=== PATIENT | male | born 1940 | race African-American/Black ===

== ENCOUNTER 2021-12-26 20:27 | Inpatient (IN) | payer OTHER ==
[2021-12-26] MEDS ORDERED: ACETAMINOPHEN 325 MG TABLET (FP) PO ONE (21:38)
[2021-12-26] MEDS ORDERED: ASPIRIN 81 MG CHEWABLE TABLETS PO ONE (22:13)
[2021-12-26] MEDS ORDERED: ASPIRIN 81 MG CHEWABLE TABLETS ONE (22:35)
[2021-12-26] MEDS ORDERED: ACETAMINOPHEN 325 MG TABLET (FP) ONE (22:35)
[2021-12-26 22:40] LABS: BASO % 0.6 % (0-2.0); HEMATOCRIT 40.8 % (35.4-49); HEMOGLOBIN 13.4 GM/dL (11.7-16.9); MCHC 32.9 g/dl (32.0-35.9); MEAN CELL VOLUME 88.1 fl (80-96); MEAN PLT VOLUME 6.8 fl (7.5-11.1); MONO % 10.3 % (3.8-10.2); NEUT % 83.1 % (42.8-82.8); PLATELET COUNT 409 10^3/uL (134-434); RBC 4.63 M/mm3 (4.00-5.60); RDW 16.8 % (11.9-15.9); WHITE BLOOD COUNT 6.8 K/mm3 (4.0-10.0)
[2021-12-26 22:47] LABS: INR 1.24 (0.83-1.09); PROTHROMBIN TIME (PATIENT) 14.3 SEC (9.7-13.0)
[2021-12-26 22:50] LABS: ACTIVATED PTT 26.4 SECONDS (25.2-36.5)
[2021-12-26 23:06] LABS: CALCIUM 9.3 mg/dL (8.5-10.1)
[2021-12-26 23:07] LABS: ALBUMIN 3.7 g/dl (3.4-5.0); BLOOD UREA NITROGEN 16.8 mg/dL (7-18); MAGNESIUM 1.6 mg/dL (1.8-2.4)
[2021-12-26 23:10] LABS: CREATININE 1.4 mg/dL (0.55-1.3)
[2021-12-26 23:12] LABS: BILIRUBIN,TOTAL 0.9 mg/dL (0.2-1)
[2021-12-27 05:15] LABS: EPI CELLS 5 /uL (0-25.1); HYALINE CASTS 0 /uL (0-3.1); PH,URINE 5.5 (5.0-8.0); URINE APPEARANCE CLEAR; URINE BACTERIA 0 /uL (0-1359); URINE BILIRUBIN NEGATIVE (NEGATIVE); URINE COLOR YELLOW; URINE GLUCOSE (UA) NEGATIVE (NEGATIVE); URINE KETONE NEGATIVE (NEGATIVE); URINE LEUK ESTERASE NEGATIVE (NEGATIVE); URINE NITRITE NEGATIVE (NEGATIVE); URINE PROTEIN NEGATIVE (NEGATIVE); URINE RBC 1 /uL (0-23.9); URINE WBC 6 /uL (0-25.8)
[2021-12-27] MEDS ORDERED: HEPARIN NA (PORCINE) 5,000 UNITS/ML 1ML VIAL SQ SCH (06:00)
[2021-12-27] MEDS ORDERED: HEPARIN NA (PORCINE) 5,000 UNITS/ML 1ML VIAL ONE ×3 (06:10→15:56)
[2021-12-27 07:59] LABS: BASO % 0.4 % (0-2.0); EOS % 0.4 % (0-4.5); HEMATOCRIT 39.4 % (35.4-49); LYMPH % 9.3 % (8-40); MCH 29.2 pg (25.7-33.7); MCHC 33.1 g/dl (32.0-35.9); MEAN CELL VOLUME 88.2 fl (80-96); MEAN PLT VOLUME 7.3 fl (7.5-11.1); MONO % 13.7 % (3.8-10.2); NEUT % 76.2 % (42.8-82.8); PLATELET COUNT 394 10^3/uL (134-434); RBC 4.46 M/mm3 (4.00-5.60); RDW 17.1 % (11.9-15.9); WHITE BLOOD COUNT 7.2 K/mm3 (4.0-10.0)
[2021-12-27 08:20] LABS: ALBUMIN 3.5 g/dl (3.4-5.0); BLOOD UREA NITROGEN 15.4 mg/dL (7-18); CALCIUM 9.2 mg/dL (8.5-10.1); CHOLESTEROL 181 mg/dL (50-200); MAGNESIUM 1.7 mg/dL (1.8-2.4); TRIGLYCERIDES 111 mg/dL (0-150)
[2021-12-27 08:21] LABS: LDL CHOLESTEROL (ONLY SJRH) 118 mg/dL (5-100)
[2021-12-27 08:23] LABS: CREATININE 1.2 mg/dL (0.55-1.3); HDL CHOLESTEROL 45 mg/dL (40-60); PHOSPHOROUS 3.9 mg/dL (2.5-4.9)
[2021-12-27 08:25] LABS: BILIRUBIN,TOTAL 0.9 mg/dL (0.2-1); TOT PROT 7.4 g/dl (6.4-8.2)
[2021-12-27] MEDS: INSULIN SLIDING SCALE (NOVOLOG) 1 VIAL SQ SCH ×3 (09:06→21:48)
[2021-12-27] MEDS ORDERED: ENOXAPARIN NA (PORCINE) 40 MG/0.4 ML DISP.SYRIN SQ SCH (10:00)
[2021-12-27] MEDS: CARVEDILOL 25 MG TABLET (FP) PO SCH ×2 (10:45→21:48)
[2021-12-27] MEDS ORDERED: CARVEDILOL 25 MG TABLET (FP) ONE (10:48)
[2021-12-27] MEDS ORDERED: HEPARIN NA (PORCINE) 5,000 UNITS/ML 1ML VIAL IVPUSH ONE (10:57)
[2021-12-27] MEDS ORDERED: HEPARIN NA (PORCINE) 5,000 UNITS/ML 1ML VIAL IVPUSH PRN ×4 (10:57→16:33)
[2021-12-27] MEDS ORDERED: HEPARIN INFUSION - 25,000 UNITS/500 ML INFUS.BAG IVPB SCH (11:00)
[2021-12-27] MEDS ORDERED: HEPARIN INFUSION - 25,000 UNITS/500 ML INFUS.BAG IVPB ONE (12:10)
[2021-12-27] MEDS ORDERED: ALBUTEROL SO4 HFA INHALER IH PRN (14:35)
[2021-12-27] MEDS ORDERED: DEXMEDETOMIDINE HCL 200 MCG/2 ML IVPB ONE (15:30)
[2021-12-27] MEDS ORDERED: SUCCINYLCHOLINE CHLORIDE 200 MG/10 ML SYRINGE ONE ×2 (15:49→17:23)
[2021-12-27] MEDS ORDERED: BUPIVACAINE HCL/PF 0.5% (5MG/ML) 10 ML VIAL ONE (15:56)
[2021-12-27] MEDS ORDERED: LIDOCAINE HCL 1%, 10 MG/ML (20ML VIAL) ONE (15:56)
[2021-12-27] MEDS: FLUTICASONE/UMECLIDIN/VILANTER(200-62.5-25 TRELEGY ELLIPTA) INAHLER IH SCH (16:25)
[2021-12-27] MEDS ORDERED: ceFAZolin SODIUM 1 GM VIAL IVPB ONE (16:42)
[2021-12-27] MEDS ORDERED: BUPIVACAINE HCL/PF 0.5% (5MG/ML) 10 ML VIAL IJ ONE (16:47)
[2021-12-27] MEDS ORDERED: LIDOCAINE HCL 1%, 10 MG/ML (50 mL VIAL) INF ONE (16:47)
[2021-12-27] MEDS ORDERED: PROPOFOL 20 ML ONE (17:23)
[2021-12-27] MEDS: HEPARIN INFUSION - 25,000 UNITS/500 ML INFUS.BAG IVPB SCH (19:00)
[2021-12-27] MEDS: ATORVASTATIN CA 80 MG TABLET (FP) PO SCH (21:48)
[2021-12-27] MEDS: MUPIROCIN 2% TOPICAL OINTMENT FOR DECOLONIZATION NS SCH (22:22)
[2021-12-27] MEDS: CHLORHEXIDINE GLUCONATE 4% CLEANSER FOR DECOLONIZATION TP SCH (22:22)
[2021-12-28] MEDS: INSULIN SLIDING SCALE (NOVOLOG) 1 VIAL SQ SCH ×6 (06:21→21:10)
[2021-12-28 08:14] LABS: HEMATOCRIT 39.8 % (35.4-49); MCH 29.1 pg (25.7-33.7); MCHC 32.7 g/dl (32.0-35.9); MEAN PLT VOLUME 7.5 fl (7.5-11.1); PLATELET COUNT 269 10^3/uL (134-434); RBC 4.47 M/mm3 (4.00-5.60); RDW 16.9 % (11.9-15.9); WHITE BLOOD COUNT 7.3 K/mm3 (4.0-10.0)
[2021-12-28 08:19] LABS: INR 1.27 (0.83-1.09); PROTHROMBIN TIME (PATIENT) 14.6 SEC (9.7-13.0)
[2021-12-28 08:21] LABS: ACTIVATED PTT 49.8 SECONDS (25.2-36.5)
[2021-12-28 08:25] LABS: ALBUMIN 2.9 g/dl (3.4-5.0); BLOOD UREA NITROGEN 20.1 mg/dL (7-18)
[2021-12-28 08:27] LABS: CALCIUM 8.7 mg/dL (8.5-10.1)
[2021-12-28 08:28] LABS: CREATININE 1.5 mg/dL (0.55-1.3)
[2021-12-28 08:29] LABS: MAGNESIUM 1.7 mg/dL (1.8-2.4)
[2021-12-28 08:30] LABS: BILIRUBIN,TOTAL 1.3 mg/dL (0.2-1); TOT PROT 6.6 g/dl (6.4-8.2)
[2021-12-28] MEDS: MUPIROCIN 2% TOPICAL OINTMENT FOR DECOLONIZATION NS SCH ×2 (09:19→21:08)
[2021-12-28] MEDS: CARVEDILOL 25 MG TABLET (FP) PO SCH ×2 (09:19→21:09)
[2021-12-28] MEDS: TAMSULOSIN HCL 0.4 MG CAP PO SCH (09:19)
[2021-12-28] MEDS: FLUTICASONE/UMECLIDIN/VILANTER(200-62.5-25 TRELEGY ELLIPTA) INAHLER IH SCH (11:17)
[2021-12-28] MEDS: ACETAMINOPHEN 325 MG TABLET (FP) PO PRN (11:18)
[2021-12-28] MEDS: HEPARIN INFUSION - 25,000 UNITS/500 ML INFUS.BAG IVPB SCH (18:20)
[2021-12-28] MEDS: CHLORHEXIDINE GLUCONATE 4% CLEANSER FOR DECOLONIZATION TP SCH (21:09)
[2021-12-28] MEDS: ATORVASTATIN CA 80 MG TABLET (FP) PO SCH (21:09)
[2021-12-29] MEDS: INSULIN SLIDING SCALE (NOVOLOG) 1 VIAL SQ SCH ×4 (06:23→21:50)
[2021-12-29 06:59] LABS: HEMATOCRIT 37.8 % (35.4-49); HEMOGLOBIN 12.3 GM/dL (11.7-16.9); MCH 28.8 pg (25.7-33.7); MCHC 32.5 g/dl (32.0-35.9); MEAN CELL VOLUME 88.6 fl (80-96); PLATELET COUNT 244 10^3/uL (134-434); RBC 4.27 M/mm3 (4.00-5.60); RDW 16.9 % (11.9-15.9); WHITE BLOOD COUNT 9.9 K/mm3 (4.0-10.0)
[2021-12-29] MEDS: TAMSULOSIN HCL 0.4 MG CAP PO SCH (09:33)
[2021-12-29] MEDS: CARVEDILOL 25 MG TABLET (FP) PO SCH ×2 (09:34→21:50)
[2021-12-29] MEDS: MUPIROCIN 2% TOPICAL OINTMENT FOR DECOLONIZATION NS SCH ×2 (09:35→21:50)
[2021-12-29] MEDS: FLUTICASONE/UMECLIDIN/VILANTER(200-62.5-25 TRELEGY ELLIPTA) INAHLER IH SCH (09:35)
[2021-12-29] MEDS: APIXABAN 5 MG TABLET PO SCH ×2 (14:05→21:50)
[2021-12-29 14:57] VITALS: BMI 34.1
[2021-12-29] MEDS: ACETAMINOPHEN 325 MG TABLET (FP) PO PRN (21:49)
[2021-12-29] MEDS: CHLORHEXIDINE GLUCONATE 4% CLEANSER FOR DECOLONIZATION TP SCH (21:50)
[2021-12-29] MEDS: ATORVASTATIN CA 80 MG TABLET (FP) PO SCH (21:50)
[2021-12-30] MEDS: INSULIN SLIDING SCALE (NOVOLOG) 1 VIAL SQ SCH ×2 (06:18→10:58)
[2021-12-30 06:21] VITALS: TEMP 97.7
[2021-12-30 08:17] LABS: CALCIUM 8.3 mg/dL (8.5-10.1)
[2021-12-30 08:18] LABS: ALBUMIN 2.5 g/dl (3.4-5.0); BLOOD UREA NITROGEN 20.6 mg/dL (7-18); MAGNESIUM 1.9 mg/dL (1.8-2.4)
[2021-12-30 08:21] LABS: BILIRUBIN,TOTAL 0.8 mg/dL (0.2-1); CREATININE 1.1 mg/dL (0.55-1.3); PHOSPHOROUS 3.1 mg/dL (2.5-4.9); TOT PROT 6.1 g/dl (6.4-8.2)
[2021-12-30] MEDS: APIXABAN 5 MG TABLET PO SCH (09:10)
[2021-12-30] MEDS: TAMSULOSIN HCL 0.4 MG CAP PO SCH (09:10)
[2021-12-30] MEDS: CARVEDILOL 25 MG TABLET (FP) PO SCH (09:10)
[2021-12-30] MEDS: FLUTICASONE/UMECLIDIN/VILANTER(200-62.5-25 TRELEGY ELLIPTA) INAHLER IH SCH (09:11)
[2021-12-30] MEDS: MUPIROCIN 2% TOPICAL OINTMENT FOR DECOLONIZATION NS SCH (09:11)
[2021-12-30] MEDS: ACETAMINOPHEN 325 MG TABLET (FP) PO PRN (09:17)
[2021-12-30 10:50] VITALS: BP 132/75; PULSE 91; RESP 21
[2021-12-30 11:35] LABS: BASO % 0.5 % (0-2.0); EOS % 0.2 % (0-4.5); HEMATOCRIT 36.4 % (35.4-49); HEMOGLOBIN 11.9 GM/dL (11.7-16.9); MCHC 32.8 g/dl (32.0-35.9); MEAN CELL VOLUME 88.5 fl (80-96); MEAN PLT VOLUME 7.5 fl (7.5-11.1); MONO % 10.1 % (3.8-10.2); NEUT % 81.2 % (42.8-82.8); PLATELET COUNT 286 10^3/uL (134-434); RBC 4.11 M/mm3 (4.00-5.60); RDW 16.4 % (11.9-15.9); WHITE BLOOD COUNT 6.9 K/mm3 (4.0-10.0)
== END 2021-12-30 18:25 | disposition left against medical advice (07) | DRG 270 ==
LOC: JER 20:27 → JERBED 12-27 02:59 → JICU 12-27 19:28
PROVIDERS: ADMIT Hospitalist; ATTEND Internal Medicine
PROC: 047K3ZZ Dilation of Right Femoral Artery, Percutaneous Approach (ICD-10-PCS; 2021-12-27)
PROC: 04UK3JZ Supplement Right Femoral Artery with Synthetic Substitute, Percutaneous Approach (ICD-10-PCS; 2021-12-27)
PROC: 3E05317 Introduction of Other Thrombolytic into Peripheral Artery, Percutaneous Approach (ICD-10-PCS; 2021-12-27)
PROC: B41DZZZ Fluoroscopy of Aorta and Bilateral Lower Extremity Arteries (ICD-10-PCS; 2021-12-27)
PROC: 04CK3ZZ Extirpation of Matter from Right Femoral Artery, Percutaneous Approach (ICD-10-PCS; principal; 2021-12-27 15:33)
DX: I74.3 Embolism and thrombosis of arteries of the lower extremities (principal); I77.77 Dissection of artery of lower extremity; N17.9 Acute kidney failure, unspecified; G89.18 Other acute postprocedural pain; M79.661 Pain in right lower leg; E11.51 Type 2 diabetes mellitus with diabetic peripheral angiopathy without gangrene; J44.9 Chronic obstructive pulmonary disease, unspecified; I10 Essential (primary) hypertension; I70.202 Unspecified atherosclerosis of native arteries of extremities, left leg; F03.90 Unspecified dementia, unspecified severity, without behavioral disturbance, psychotic disturbance, mood disturbance, and anxiety; Z95.820 Peripheral vascular angioplasty status with implants and grafts; E78.5 Hyperlipidemia, unspecified; I48.91 Unspecified atrial fibrillation; R10.30 Lower abdominal pain, unspecified; R42 Dizziness and giddiness; M25.551 Pain in right hip; I49.9 Cardiac arrhythmia, unspecified; R53.1 Weakness; R00.0 Tachycardia, unspecified; N28.9 Disorder of kidney and ureter, unspecified; N20.0 Calculus of kidney; N40.0 Benign prostatic hyperplasia without lower urinary tract symptoms
CPT/HCPCS: 0241U-QW; 36415; 71045-TC-FY; 75635-TC; 76000-TC-FY; 80053; 80061; 81003; 82550; 82553; 82570; 82962; 83036; 83735; 83935; 84100; 84300; 84540; 85025; 85027; 85610; 85730; 86850; 86900; 86901; 88304-TC; 93005; 93010; 93971-TC; 94760; 99285-25; J1644; Q9967

== ENCOUNTER 2022-04-07 12:01 | Inpatient (IN) | payer OTHER ==
[2022-04-07 13:13] LABS: INR 1.2 (0.83-1.09); PROTHROMBIN TIME (PATIENT) 13.8 SEC (9.7-13.0)
[2022-04-07 13:16] LABS: ACTIVATED PTT 27.5 SECONDS (25.2-36.5)
[2022-04-07 13:18] LABS: BASO % 0.4 % (0-2.0); EOS % 0.9 % (0-4.5); HEMATOCRIT 34.1 % (35.4-49); HEMOGLOBIN 11.3 GM/dL (11.7-16.9); LYMPH % 6.1 % (8-40); MCH 28.8 pg (25.7-33.7); MCHC 33.1 g/dl (32.0-35.9); MEAN CELL VOLUME 87.2 fl (80-96); MEAN PLT VOLUME 6.9 fl (7.5-11.1); MONO % 7.6 % (3.8-10.2); PLATELET COUNT 477 10^3/uL (134-434); RBC 3.91 M/mm3 (4.00-5.60); RDW 15.8 % (11.9-15.9); WHITE BLOOD COUNT 7.8 K/mm3 (4.0-10.0)
[2022-04-07 13:35] LABS: CALCIUM 8.5 mg/dL (8.5-10.1)
[2022-04-07 13:36] LABS: ALBUMIN 3.1 g/dl (3.4-5.0); BLOOD UREA NITROGEN 28.6 mg/dL (7-18)
[2022-04-07 13:38] LABS: CREATININE 1.9 mg/dL (0.55-1.3)
[2022-04-07 13:40] LABS: BILIRUBIN,TOTAL 0.5 mg/dL (0.2-1); TOT PROT 7.2 g/dl (6.4-8.2)
[2022-04-07 14:50] LABS: EPI CELLS 8 /uL (0-25.1); HYALINE CASTS 2 /uL (0-3.1); URINE APPEARANCE CLEAR; URINE BACTERIA 0 /uL (0-1359); URINE BILIRUBIN NEGATIVE (NEGATIVE); URINE COLOR YELLOW; URINE GLUCOSE (UA) NEGATIVE (NEGATIVE); URINE KETONE NEGATIVE (NEGATIVE); URINE LEUK ESTERASE NEGATIVE (NEGATIVE); URINE NITRITE NEGATIVE (NEGATIVE); URINE PROTEIN 1+ (NEGATIVE); URINE RBC 7 /uL (0-23.9); URINE WBC 12 /uL (0-25.8)
[2022-04-07] MEDS: SODIUM CHLORIDE 1,000 ML IV SCH (18:44)
[2022-04-07] MEDS ORDERED: ASPIRIN 300 MG SUPP.RECT PR SCH (20:30)
[2022-04-07] MEDS: CARVEDILOL 25 MG TABLET (FP) PO SCH (21:31)
[2022-04-07] MEDS: ENOXAPARIN NA (PORCINE) 100 MG/1 ML DISP.SYRIN SQ SCH (21:31)
[2022-04-07] MEDS: ATORVASTATIN CA 80 MG TABLET (FP) PO SCH (21:31)
[2022-04-08 03:14] VITALS: BMI 39.5
[2022-04-08 08:27] LABS: BASO % 0.5 % (0-2.0); EOS % 1.8 % (0-4.5); HEMATOCRIT 35.1 % (35.4-49); HEMOGLOBIN 11.3 GM/dL (11.7-16.9); LYMPH % 12.9 % (8-40); MCH 28.2 pg (25.7-33.7); MCHC 32.3 g/dl (32.0-35.9); MEAN CELL VOLUME 87.3 fl (80-96); MEAN PLT VOLUME 7.3 fl (7.5-11.1); MONO % 9.7 % (3.8-10.2); NEUT % 75.1 % (42.8-82.8); PLATELET COUNT 458 10^3/uL (134-434); RBC 4.02 M/mm3 (4.00-5.60); RDW 15.7 % (11.9-15.9); WHITE BLOOD COUNT 4.7 K/mm3 (4.0-10.0)
[2022-04-08 08:28] LABS: INR 1.25 (0.83-1.09); PROTHROMBIN TIME (PATIENT) 14.4 SEC (9.7-13.0)
[2022-04-08 08:29] LABS: ACTIVATED PTT 30.6 SECONDS (25.2-36.5)
[2022-04-08 09:04] LABS: CALCIUM 8.5 mg/dL (8.5-10.1)
[2022-04-08 09:05] LABS: ALBUMIN 2.9 g/dl (3.4-5.0); BLOOD UREA NITROGEN 18.9 mg/dL (7-18)
[2022-04-08 09:08] LABS: CREATININE 1.4 mg/dL (0.55-1.3); PHOSPHOROUS 3.8 mg/dL (2.5-4.9)
[2022-04-08 09:09] LABS: BILIRUBIN,TOTAL 0.9 mg/dL (0.2-1)
[2022-04-08] MEDS ORDERED: ASPIRIN SUPPOSITORY 600 MG SUPP.RECT PR SCH (10:00)
[2022-04-08] MEDS: ENOXAPARIN NA (PORCINE) 100 MG/1 ML DISP.SYRIN SQ SCH ×2 (10:04→21:27)
[2022-04-08] MEDS: CARVEDILOL 25 MG TABLET (FP) PO SCH ×2 (10:06→21:27)
[2022-04-08] MEDS: SODIUM CHLORIDE 1,000 ML IV SCH (18:20)
[2022-04-08] MEDS: ATORVASTATIN CA 80 MG TABLET (FP) PO SCH (21:27)
[2022-04-09 08:02] LABS: BASO % 0.8 % (0-2.0); EOS % 1.6 % (0-4.5); HEMATOCRIT 36.2 % (35.4-49); HEMOGLOBIN 11.4 GM/dL (11.7-16.9); LYMPH % 12.3 % (8-40); MCH 27.6 pg (25.7-33.7); MCHC 31.6 g/dl (32.0-35.9); MEAN CELL VOLUME 87.5 fl (80-96); MEAN PLT VOLUME 7.2 fl (7.5-11.1); MONO % 10.9 % (3.8-10.2); NEUT % 74.4 % (42.8-82.8); PLATELET COUNT 425 10^3/uL (134-434); RBC 4.14 M/mm3 (4.00-5.60); RDW 15.6 % (11.9-15.9); WHITE BLOOD COUNT 4.3 K/mm3 (4.0-10.0)
[2022-04-09 08:28] LABS: ALBUMIN 2.7 g/dl (3.4-5.0); CALCIUM 8.5 mg/dL (8.5-10.1)
[2022-04-09 08:29] LABS: BLOOD UREA NITROGEN 16.1 mg/dL (7-18); MAGNESIUM 2.1 mg/dL (1.8-2.4)
[2022-04-09 08:31] LABS: PHOSPHOROUS 3.5 mg/dL (2.5-4.9)
[2022-04-09 08:32] LABS: CREATININE 1.3 mg/dL (0.55-1.3)
[2022-04-09 08:33] LABS: BILIRUBIN,TOTAL 0.9 mg/dL (0.2-1); TOT PROT 6.6 g/dl (6.4-8.2)
[2022-04-09] MEDS: ENOXAPARIN NA (PORCINE) 100 MG/1 ML DISP.SYRIN SQ SCH (09:58)
[2022-04-09] MEDS: CARVEDILOL 25 MG TABLET (FP) PO SCH ×2 (09:58→22:05)
[2022-04-09] MEDS: ASPIRIN COATED 81 MG TABLET.EC PO SCH (11:08)
[2022-04-09 15:28] VITALS: RESP 20
[2022-04-09] MEDS: ATORVASTATIN CA 80 MG TABLET (FP) PO SCH (22:05)
[2022-04-09] MEDS: APIXABAN 5 MG TABLET PO SCH (22:06)
[2022-04-10 09:04] LABS: BASO % 1.2 % (0-2.0); EOS % 2.2 % (0-4.5); HEMATOCRIT 34.2 % (35.4-49); HEMOGLOBIN 11.3 GM/dL (11.7-16.9); LYMPH % 16.2 % (8-40); MCH 28.7 pg (25.7-33.7); MCHC 32.9 g/dl (32.0-35.9); MEAN CELL VOLUME 87.1 fl (80-96); MEAN PLT VOLUME 7.2 fl (7.5-11.1); MONO % 13.1 % (3.8-10.2); NEUT % 67.3 % (42.8-82.8); PLATELET COUNT 420 10^3/uL (134-434); RBC 3.93 M/mm3 (4.00-5.60); RDW 16.1 % (11.9-15.9); WHITE BLOOD COUNT 4.3 K/mm3 (4.0-10.0)
[2022-04-10 09:57] LABS: CALCIUM 8.4 mg/dL (8.5-10.1)
[2022-04-10] MEDS ORDERED: amLODIPine BESYLATE 2.5 MG TABLET (FP) PO SCH (10:00)
[2022-04-10 10:01] LABS: CREATININE 1.4 mg/dL (0.55-1.3)
[2022-04-10] MEDS: CARVEDILOL 25 MG TABLET (FP) PO SCH (10:27)
[2022-04-10] MEDS: ASPIRIN COATED 81 MG TABLET.EC PO SCH (10:27)
[2022-04-10] MEDS: APIXABAN 5 MG TABLET PO SCH (10:27)
[2022-04-10 15:42] VITALS: BP 138/56; PULSE 81; TEMP 98.4
== END 2022-04-10 17:33 | disposition home health service (06) | DRG 65 ==
LOC: JER 12:01 → JERBED 13:38 → J4W 20:26
PROVIDERS: ADMIT Internal Medicine
DX: I63.9 Cerebral infarction, unspecified (principal); G81.91 Hemiplegia, unspecified affecting right dominant side; N17.9 Acute kidney failure, unspecified; R47.01 Aphasia; E11.51 Type 2 diabetes mellitus with diabetic peripheral angiopathy without gangrene; E78.5 Hyperlipidemia, unspecified; J44.9 Chronic obstructive pulmonary disease, unspecified; I48.91 Unspecified atrial fibrillation; E11.22 Type 2 diabetes mellitus with diabetic chronic kidney disease; I12.9 Hypertensive chronic kidney disease with stage 1 through stage 4 chronic kidney disease, or unspecified chronic kidney disease; N18.9 Chronic kidney disease, unspecified
CPT/HCPCS: 36415; 70450-TC; 70496-TC; 70498-TC; 70551-TC; 71045-TC-FY; 74230-TC-FY; 80048; 80053; 80061; 81003; 82962; 83036; 83735; 84100; 84443; 84484; 85025; 85610; 85730; 86850; 86900; 86901; 92611-GN; 93005; 93010; 93306-TC; 93880-TC; 97116-GP; 97162-GP; 99285-25; C9803-CS; Q9967; U0003; U0005

== ENCOUNTER 2025-01-10 12:47 | Inpatient (IN) | payer OTHER ==
[2025-01-10] MEDS ORDERED: PIPERACILLIN/TAZOB 4.5 GM 4.5 GM/100 ML BAG IVPB ONE (13:25)
[2025-01-10 13:30] LABS: MCHC 32.8 g/dl (32.3-36.5); MEAN CELL VOLUME 95.1 fl (79.0-92.2); MEAN PLT VOLUME 12.7 fl (9.4-12.4); RDW 17.0 % (12.6-16.6)
[2025-01-10] MEDS: PIPERACILLIN/TAZOBACTAM 4.5 GM VIAL IVPB ONE (13:32)
[2025-01-10] MEDS: LACTATED RINGERS SOLUTION 1000 ML INFUS.BAG IV ONE ×2 (13:32→15:12)
[2025-01-10 13:39] LABS: INR 1.76 (0.83-1.09); PROTHROMBIN TIME (PATIENT) 19.4 SEC (9.7-13.0)
[2025-01-10 13:40] LABS: BG HCT 55.0 % (35.4-49); VENOUS BASE EXCESS -9.1 mmol/L (-2-2); VENOUS O2 SATURATION 37.1 % (70-80); VENOUS PCO2 37.5 mmHg (38-52); VENOUS PH 7.271 (7.310-7.410)
[2025-01-10] MEDS ORDERED: VANCOMYCIN 1 GM PREMIX (F) 1 GM/200 ML BAG ONE (13:41)
[2025-01-10 13:42] LABS: ACTIVATED PTT 30.7 SECONDS (25.2-36.5)
[2025-01-10] MEDS: VANCOMYCIN 1,000 MG in DEXTROSE 5%-WATER - 500 ML IVPB ONE (13:45)
[2025-01-10] MEDS: CLINDAMYCIN 600MG PREMIX IVPB 600 MG/50 ML BAG IVPB ONE (13:49)
[2025-01-10 13:50] LABS: GLUCOSE,RANDOM 135.0 mg/dL (74-106)
[2025-01-10 13:51] LABS: TOT PROT 6.3 g/dl (6.4-8.2)
[2025-01-10 13:52] LABS: CO2 15.0 mmol/L (21-32)
[2025-01-10 13:53] LABS: ALK PHOS 96.0 U/L (40-150)
[2025-01-10 13:56] LABS: CREATININE 2.52 mg/dL (0.55-1.3); LACTIC ACID 7.2 mmol/L (0.4-2.0); SGOT/AST 77.0 U/L (5-34); SGPT/ALT 18.0 U/L (0-55)
[2025-01-10 14:17] LABS: HCV DIAGNOSTIC IN-HOUSE W/RFLX NON-REACTIVE (NONREACTIVE); HIV INTERPRETATION NEGATIVE (NEGATIVE)
[2025-01-10] MEDS: CLINDAMYCIN 900 MG PREMIX IVPB 900 MG/50 ML BAG IVPB ONE (15:18)
[2025-01-10 16:55] LABS: EPI CELLS 10 /uL (0-25.1); HYALINE CASTS 2 /uL (0-3.1); URINE APPEARANCE TURBID; URINE BACTERIA >9,000 /uL (0-1359); URINE BILIRUBIN 2+ (NEGATIVE); URINE COLOR DK YELLOW; URINE GLUCOSE (UA) NEGATIVE (NEGATIVE); URINE KETONE TRACE (NEGATIVE); URINE LEUK ESTERASE 3+ (NEGATIVE); URINE NITRITE NEGATIVE (NEGATIVE); URINE PROTEIN 1+ (NEGATIVE); URINE RBC 118 /uL (0-23.9); URINE UROBILINOGEN 1.0 mg/dL (0.2-1.0); URINE WBC 1352 /uL (0-25.8)
[2025-01-10] MEDS ORDERED: METOPROLOL TARTRATE 5 MG/5 ML VIAL ONE (17:35)
[2025-01-10] MEDS: METOPROLOL TARTRATE 5 MG/5 ML VIAL IVPUSH ONE (17:42)
[2025-01-10] MEDS: SODIUM CHLORIDE 0.9% 500 ML INFUS.BAG IV ONE (17:43)
[2025-01-10 18:00] LABS: LACTIC ACID 8.9 mmol/L (0.4-2.0)
[2025-01-10 19:24] LABS: ARTERIAL BLD GAS O2 SATURATION 90.8 % (95-98); ARTERIAL BLOOD GAS BASE EXCESS -7.9 mmol/L (-2-2); ARTERIAL BLOOD GAS PCO2 30.40 mmHg (35-45); ARTERIAL BLOOD GAS PO2 61.5 mmHg (80-100); BG HCT 45.0 % (35.4-49); O2 CONTENT 1.88 % vol
[2025-01-10 19:29] LABS: ALLENS TEST POSITIVE
[2025-01-10] MEDS: ALBUTEROL SO4 2.5/IPRATROPIUM 0.5 INH SOL 3 ML VIAL.NEB. NEB SCH (20:12)
[2025-01-10] MEDS ORDERED: PIPERACILLIN/TAZOB 2.25 GM 2.25 GM in DEXTROSE 5%-WATER - 50 ML IVPB SCH (21:00)
[2025-01-10 21:46] LABS: GLUCOSE,RANDOM 141.0 mg/dL (74-106); TOT PROT 5.6 g/dl (6.4-8.2)
[2025-01-10] MEDS: CHLORHEXIDINE GLUCONATE 4% CLEANSER FOR DECOLONIZATION TP SCH (21:48)
[2025-01-10] MEDS: SODIUM ZIRCONIUM CYCLOSILICATE (LOKELMA) 5 GM PACKET PO SCH (21:48)
[2025-01-10 21:49] LABS: ALK PHOS 87.0 U/L (40-150)
[2025-01-10] MEDS: MUPIROCIN 2% TOPICAL OINTMENT FOR DECOLONIZATION NS SCH (21:49)
[2025-01-10 21:51] LABS: SGOT/AST 132.0 U/L (5-34); SGPT/ALT 25.0 U/L (0-55)
[2025-01-10 21:52] LABS: CREATININE 2.42 mg/dL (0.55-1.3)
[2025-01-10] MEDS: PIPERACILLIN/TAZOB 2.25 GM 2.25 GM in DEXTROSE 5%-WATER - 50 ML IVPB SCH (21:58)
[2025-01-10 22:02] LABS: CO2 16.0 mmol/L (21-32)
[2025-01-10 22:17] LABS: LACTIC ACID 8.0 mmol/L (0.4-2.0)
[2025-01-10] MEDS: LACTATED RINGERS SOLUTION 1,000 ML/1,000 ML INFUS.BAG IV SCH (23:00)
[2025-01-11] MEDS ORDERED: ACETAMINOPHEN INJECTION 100 ML ONE (03:04)
[2025-01-11] MEDS ORDERED: ACETAMINOPHEN 1000 MG/100 ML BAG IVPB PRN (06:07)
[2025-01-11] MEDS: TAMSULOSIN HCL 0.4 MG CAP PO SCH (07:51)
[2025-01-11] MEDS: morphine CARPU-JECT 2 MG/1 ML DISP.SYRIN IVPUSH ONE (08:04)
[2025-01-11] MEDS: ENOXAPARIN NA (PORCINE) 100 MG/1 ML DISP.SYRIN SQ ONE (08:06)
[2025-01-11] MEDS: LACTATED RINGERS SOLUTION 1,000 ML/1,000 ML INFUS.BAG IV SCH (08:06)
[2025-01-11 08:57] LABS: MCHC 32.6 g/dl (32.3-36.5); MEAN CELL VOLUME 94.3 fl (79.0-92.2); RDW 17.3 % (12.6-16.6)
[2025-01-11 09:14] LABS: LACTIC ACID 6.5 mmol/L (0.4-2.0)
[2025-01-11] MEDS: METOPROLOL TARTRATE 5 MG/5 ML VIAL IVPUSH PRN (09:37)
[2025-01-11 09:52] LABS: ARTERIAL BLD GAS O2 SATURATION 95.0 % (95-98); ARTERIAL BLOOD GAS BASE EXCESS -9.4 mmol/L (-2-2); ARTERIAL BLOOD GAS PCO2 30.80 mmHg (35-45); ARTERIAL BLOOD GAS PO2 79.7 mmHg (80-100); BG HCT 48.0 % (35.4-49)
[2025-01-11 09:53] LABS: ALLENS TEST POSITIVE
[2025-01-11 12:25] LABS: COCAINE, UR NEGATIVE (NEGATIVE)
[2025-01-11 12:26] LABS: METHADONE, UR NEGATIVE (NEGATIVE); OPIATES, URI NEGATIVE (NEGATIVE); PHENCYCLIDINE,URINE NEGATIVE (NEGATIVE); URINE AMPHETAMINES NEGATIVE (NEGATIVE); URINE BARBITURATES NEGATIVE (NEGATIVE); URINE BENZODIAZEPINES NEGATIVE (NEGATIVE)
[2025-01-11] MEDS: DEXMEDETOMIDINE PREMIX 400 MCG/100 ML BAG IVPB SCH (12:29)
[2025-01-11 12:47] LABS: LACTIC ACID 7.9 mmol/L (0.4-2.0)
[2025-01-11 13:45] LABS: LDL CHOLESTEROL (ONLY SJRH) 16 mg/dL (5-100)
[2025-01-11] MEDS ORDERED: NOREPINEPHRINE BITARTRATE 4 MG/4 ML ML IV ONE (14:19)
[2025-01-11] MEDS ORDERED: RAPID SEQUENCE INTUBATION KIT NR ONE (14:44)
[2025-01-11] MEDS ORDERED: MIDAZOLAM HCL 5 MG/1 ML Single Dose Vial ONE (14:45)
[2025-01-11 14:47] LABS: N-TERMINAL BNP > 70000.0 pg/mL (0-299.9)
[2025-01-11] MEDS: SODIUM CHLORIDE IVPB SCH (14:50)
[2025-01-11] MEDS: NOREPINEPHRINE IVPB SCH (14:50)
[2025-01-11] MEDS: NOREPINEPHRINE BITARTRATE/D5W 8 MG/250 ML BAG IVPB SCH (15:00)
[2025-01-11 15:12] VITALS: BMI 32.1
[2025-01-11] MEDS ORDERED: PROPOFOL 1,000,000 MCG/100 ML VIAL ONE (15:35)
[2025-01-11] MEDS: LACTATED RINGERS SOLUTION 1000 ML INFUS.BAG IV ONE (15:37)
[2025-01-11] MEDS: MIDAZOLAM HCL 5 MG/1 ML Single Dose Vial IVPUSH ONE (15:38)
[2025-01-11] MEDS ORDERED: DEXTROSE 50%-WATER 25 GM/50 ML DISP.SYRIN ONE ×2 (16:26→21:07)
[2025-01-11] MEDS: PROPOFOL 1,000,000 MCG/100 ML VIAL IVPB SCH (16:45)
[2025-01-11] MEDS ORDERED: PHENYLEPHRINE HCL 10 MG/1 ML SINGLE DOSE VIAL ONE ×2 (16:58→18:40)
[2025-01-11 17:07] LABS: ARTERIAL BLD GAS O2 SATURATION 99.6 % (95-98); ARTERIAL BLOOD GAS BASE EXCESS -12.9 mmol/L (-2-2); ARTERIAL BLOOD GAS PCO2 43.00 mmHg (35-45); ARTERIAL BLOOD GAS PO2 314.7 mmHg (80-100); BG HCT 48.0 % (35.4-49)
[2025-01-11 17:10] LABS: ALLENS TEST POSITIVE; VENT MODE A/C; VENT RATE 14
[2025-01-11] MEDS: CLINDAMYCIN 600MG PREMIX IVPB 600 MG/50 ML BAG IVPB SCH (17:14)
[2025-01-11] MEDS: ROCURONIUM BROMIDE 50 MG/5 ML VIAL IV ONE (18:16)
[2025-01-11] MEDS: dilTIAZem HCL 25 MG/5 ML - 5 ML VIAL IVPUSH ONE (18:30)
[2025-01-11] MEDS: PHENYLEPHRINE NS PREMIX 50,000 MCG/500 ML BAG CVP SCH (18:53)
[2025-01-11] MEDS: VANCOMYCIN 1 GM PREMIX (F) 1 GM/200 ML BAG IVPB SCH (18:54)
[2025-01-11 20:17] LABS: ARTERIAL BLD GAS O2 SATURATION 99.8 % (95-98); ARTERIAL BLOOD GAS BASE EXCESS -14.4 mmol/L (-2-2); ARTERIAL BLOOD GAS PCO2 34.20 mmHg (35-45); ARTERIAL BLOOD GAS PO2 450.7 mmHg (80-100); BG HCT 41.0 % (35.4-49); O2 CONTENT 2.08 % vol
[2025-01-11 20:21] LABS: VENT MODE A/C; VENT RATE 14
[2025-01-11] MEDS: HYDROCORTISONE SOD SUCCINATE 100 MG/2 ML VIAL IVPB SCH (20:23)
[2025-01-11 20:34] LABS: GLUCOSE,RANDOM 72 mg/dL (74-106)
[2025-01-11 20:35] LABS: TOT PROT 4.3 g/dl (6.4-8.2)
[2025-01-11 20:36] LABS: CO2 12 mmol/L (21-32)
[2025-01-11 20:38] LABS: ALK PHOS 115 U/L (40-150)
[2025-01-11 20:40] LABS: SGOT/AST 319 U/L (5-34); SGPT/ALT 50 U/L (0-55)
[2025-01-11 20:41] LABS: CREATININE 3.17 mg/dL (0.55-1.3)
[2025-01-11] MEDS ORDERED: INSULIN REGULAR HUMAN 100 UNITS/ML *VIAL ONE (21:07)
[2025-01-11] MEDS: DEXTROSE 50%-WATER 25 GM/50 ML DISP.SYRIN IVPUSH ONE (21:08)
[2025-01-11] MEDS: INSULIN REGULAR HUMAN 100 UNITS/ML *VIAL IVPUSH ONE (21:08)
[2025-01-11] MEDS: DEXTROSE 50%-WATER - 25 GM/50 ML VIAL IVPUSH ONE (21:09)
[2025-01-11] MEDS: SODIUM BICARBONATE 8.4% 50 MEQ/50 ML DISP.SYRIN IVPUSH ONE (21:19)
[2025-01-11] MEDS: CALCIUM GLUC IN NACL, ISO-OSM 1 GM/50 ML BAG IVPB ONE (21:20)
[2025-01-11] MEDS: SODIUM ZIRCONIUM CYCLOSILICATE (LOKELMA) 5 GM PACKET NGT ONE (21:20)
[2025-01-11] MEDS: SODIUM BICARBONATE 8.4% - 150 MEQ in DEXTROSE 5%-WATER - 1,000 ML IV SCH (21:39)
[2025-01-11] MEDS: APIXABAN 5 MG TABLET PO SCH (21:59)
[2025-01-11] MEDS: NOREPINEPHRINE 0.9 % NACL 8 MG/250 ML BAG IVPB SCH (21:59)
[2025-01-12 00:23] LABS: GLUCOSE,RANDOM 155 mg/dL (74-106)
[2025-01-12 00:24] LABS: CO2 11 mmol/L (21-32)
[2025-01-12 00:28] LABS: CREATININE 3.27 mg/dL (0.55-1.3)
[2025-01-12 01:20] LABS: GLUCOSE,RANDOM 153 mg/dL (74-106)
[2025-01-12 01:22] LABS: CO2 11 mmol/L (21-32)
[2025-01-12 01:26] LABS: CREATININE 3.34 mg/dL (0.55-1.3)
[2025-01-12] MEDS: INSULIN REGULAR HUMAN 100 UNITS/ML *VIAL IVPUSH ONE ×2 (01:40→05:46)
[2025-01-12] MEDS ORDERED: DEXTROSE 50%-WATER 25 GM/50 ML DISP.SYRIN ONE (01:45)
[2025-01-12] MEDS ORDERED: CALCIUM GLUCONATE 10% - 1,000 MG/10 ML VIAL ONE (01:45)
[2025-01-12] MEDS ORDERED: INSULIN REGULAR HUMAN 100 UNITS/ML *VIAL ONE (01:46)
[2025-01-12] MEDS: DEXTROSE 50%-WATER 25 GM/50 ML DISP.SYRIN IVPUSH ONE ×2 (01:50→05:47)
[2025-01-12] MEDS: CALCIUM GLUC IN NACL, ISO-OSM 1 GM/50 ML BAG IVPB ONE ×2 (02:45→05:46)
[2025-01-12] MEDS: ATROPINE SULFATE 1 MG/10 ML DISP.SYRIN IVPUSH ONE (05:14)
[2025-01-12] MEDS: SODIUM ZIRCONIUM CYCLOSILICATE (LOKELMA) 5 GM PACKET PO ONE (05:48)
[2025-01-12 06:03] VITALS: BP 93/58; PULSE 52; RESP 15; TEMP 97.3
[2025-01-12 06:41] LABS: ARTERIAL BLD GAS O2 SATURATION 98.7 % (95-98); ARTERIAL BLOOD GAS BASE EXCESS -19.5 mmol/L (-2-2); ARTERIAL BLOOD GAS PCO2 35.50 mmHg (35-45); ARTERIAL BLOOD GAS PO2 184.6 mmHg (80-100); BG HCT 42.0 % (35.4-49)
[2025-01-12 06:49] LABS: IMMATURE PLATELET FRACTION # 6.70 x10^3/uL; MCHC 29.8 g/dl (32.3-36.5); MEAN CELL VOLUME 102.9 fl (79.0-92.2); RDW 18.6 % (12.6-16.6)
[2025-01-12 07:00] LABS: GLUCOSE,RANDOM 327 mg/dL (74-106); TOT PROT 3.1 g/dl (6.4-8.2)
[2025-01-12 07:03] LABS: ALK PHOS 114 U/L (40-150)
[2025-01-12 07:06] LABS: CREATININE 3.51 mg/dL (0.55-1.3); SGPT/ALT 435 U/L (0-55)
[2025-01-12 07:15] LABS: CO2 9 mmol/L (21-32); SGOT/AST 3082 U/L (5-34)
[2025-01-12] MEDS ORDERED: EPINEPHrine 1:10,000 (P-F SYR) 1 MG/10 ML DISP.SYRIN ONE (07:19)
[2025-01-12] MEDS ORDERED: VANCOMYCIN/WATER FOR INJ (PEG) 1 GM/200 ML BAG IVPB SCH ×2 (18:00)
== END 2025-01-12 09:45 | disposition expired | DRG 871 ==
LOC: JER 12:47 → JERBED 18:17 → JICU 19:59
PROVIDERS: ADMIT Internal Medicine; ATTEND Internal Medicine
PROC: 5A1935Z Respiratory Ventilation, Less than 24 Consecutive Hours (ICD-10-PCS; principal; 2025-01-11)
PROC: 0BH17EZ Insertion of Endotracheal Airway into Trachea, Via Natural or Artificial Opening (ICD-10-PCS; 2025-01-11)
PROC: 05HM33Z Insertion of Infusion Device into Right Internal Jugular Vein, Percutaneous Approach (ICD-10-PCS; 2025-01-11)
PROC: B543ZZA Ultrasonography of Right Jugular Veins, Guidance (ICD-10-PCS; 2025-01-11)
PROC: 03HY32Z Insertion of Monitoring Device into Upper Artery, Percutaneous Approach (ICD-10-PCS; 2025-01-12)
PROC: 4A133B1 Monitoring of Arterial Pressure, Peripheral, Percutaneous Approach (ICD-10-PCS; 2025-01-12)
PROC: 4A133J1 Monitoring of Arterial Pulse, Peripheral, Percutaneous Approach (ICD-10-PCS; 2025-01-12)
DX: A41.9 Sepsis, unspecified organism (principal); J18.9 Pneumonia, unspecified organism; R65.21 Severe sepsis with septic shock; L03.116 Cellulitis of left lower limb; N17.9 Acute kidney failure, unspecified; J44.0 Chronic obstructive pulmonary disease with (acute) lower respiratory infection; N39.0 Urinary tract infection, site not specified; E87.20 Acidosis, unspecified; T82.598A Other mechanical complication of other cardiac and vascular devices and implants, initial encounter; I47.20 Ventricular tachycardia, unspecified; I48.91 Unspecified atrial fibrillation; I10 Essential (primary) hypertension; E11.51 Type 2 diabetes mellitus with diabetic peripheral angiopathy without gangrene; E87.5 Hyperkalemia; N40.0 Benign prostatic hyperplasia without lower urinary tract symptoms; Y83.8 Other surgical procedures as the cause of abnormal reaction of the patient, or of later complication, without mention of misadventure at the time of the procedure
CPT/HCPCS: 31500; 36415; 36600; 70450-TC; 71045-TC-FY; 73700-TC-RT; 74176-TC; 75635-TC; 76705-TC; 80048; 80053; 80061; 80307; 81003; 82248; 82803; 82962; 83036; 83605; 83735; 83880; 84100; 84443; 84484; 85025; 85027; 85610; 85730; 86803; 86850; 86900; 86901; 87040; 87070; 87077; 87086; 87205; 87389; 87637-QW; 87899; 93005; 93010; 93306-TC; 94002; 94640; 99291; G0480; J3490; Q9967